=== PATIENT | male | born 1945 | race Caucasian/White ===

== ENCOUNTER 2017-08-05 22:04 | Emergency (ER) | payer MEDICARE ==
[~2017-08-05] VITALS: Ht 165.1 cm; Wt 67.0 kg
[2017-08-06 03:36] VITALS: BP 118/76
== END 2017-08-06 04:40 | disposition home or self-care (01) ==
LOC: EDBD 22:04 → ED 23:05
DX: F10.129 Alcohol abuse with intoxication, unspecified (principal)
CPT/HCPCS: 99283

== ENCOUNTER → 2018-01-03 | Outpatient (CLI) | payer MEDICARE, MEDICAID | END | disposition home or self-care (01) | LOC: CFH 08:48 | PROVIDERS: ATTEND Physician Assistant | DX: K74.60 Unspecified cirrhosis of liver (principal); I85.00 Esophageal varices without bleeding; B18.2 Chronic viral hepatitis C; F10.10 Alcohol abuse, uncomplicated; Z91.19 Patient's noncompliance with other medical treatment and regimen; Z86.010 Personal history of colon polyps | CPT/HCPCS: 76705 ==

== ENCOUNTER 2018-02-11 01:25 | Inpatient (IN) | payer MEDICARE, MEDICAID ==
[~2018-02-11] VITALS: Ht 167.6 cm; Wt 68.8 kg
[2018-02-11 02:25] LABS: MEAN CORPUSCULAR HEMOGLOBIN 36.9 pg (27.5-34.5); MEAN CORPUSCULAR HGB CONC 34.8 g/dL (33.2-36.2); MEAN PLATELET VOLUME 8.2 fL (7.4-10.4); PLATELET COUNT 117 x10^3/uL (130-400); RED BLOOD COUNT 2.56 x10^6/uL (4.38-5.82); RED CELL DISTRIBUTION WIDTH 18.5 % (9.4-14.8)
[2018-02-11] MEDS ORDERED: SODIUM CHLORIDE FLUSH 10ML SYR IVF ONE (02:30)
[2018-02-11 02:34] LABS: ALANINE AMINOTRANSFERASE 103 U/L (12-78); ANION GAP 14 mmol/L (5-15); CALCIUM 7.6 mg/dL (8.5-10.1); CHLORIDE 72 mmol/L (98-107); CREATININE 0.49 mg/dL (0.7-1.3)
[2018-02-11 02:38] LABS: ALKALINE PHOSPHATASE 109 U/L (45-117); BILIRUBIN,TOTAL 2.5 mg/dL (0.2-1.0); TOTAL PROTEIN 6.9 g/dL (6.4-8.2)
[2018-02-11 02:59] LABS: MD YES
[2018-02-11 03:03] LABS: ANISOCYTOSIS 1+; LYMPH#(MANUAL) 1.43 x10^3/uL (1-3.4); LYMPHS% (MANUAL) 10 % (22-44); METAMYELOCYTES# (MANUAL) 0.14 x10^3/uL (0-0); METAMYELOCYTES% (MANUAL) 1 % (0-1); MONOS#(MANUAL) 2.29 x10^3/uL (0.3-2.7); MONOS% (MANUAL) 16 % (2-9); MYELOCYTES# (MANUAL) 0.29 x10^3/uL (0-0); MYELOCYTES% (MANUAL) 2 % (0-0); SEG#(MANUAL) 10.15 x10^3/uL (1.8-6.8); SEGS% (MANUAL) 71 % (42-75)
[2018-02-11 03:04] LABS: <PLATELET ESTIMATE> DECREASED; LARGE PLATELETS 1+; POLYCHROMASIA 1+
[2018-02-11 03:05] LABS: TOXIC GRAN 1+
[2018-02-11 03:08] LABS: BASOPHILLIC STIPPLING 1+
[2018-02-11] MEDS ORDERED: SODIUM CHLORIDE 0.9% 1,000 ML IV ONE (03:13)
[2018-02-11] MEDS ORDERED: OMNIPAQUE 350 MG/ML, 100ML BOTTLE ONE (03:20)
[2018-02-11] MEDS ORDERED: SODIUM CHLORIDE 0.9% 1,000ML IVBOLUS ONE (03:30)
[2018-02-11 04:52] LABS: MICROSCOPIC INDICATED
[2018-02-11 05:00] LABS: CULTURE INDICATED? YES
[2018-02-11] MEDS ORDERED: CEFTRIAXONE PMX 1GM/50ML 50 ML IV ONE (05:30)
[2018-02-11] MEDS ORDERED: CEFTRIAXONE PMX 1GM/50ML 50 ML ONE (05:43)
[2018-02-11] MEDS ORDERED: SODIUM CHLORIDE 0.9% 1,000 ML IV SCH (06:03)
[2018-02-11] MEDS ORDERED: LABETALOL 5MG/ML, 20ML IVPush PRN (06:30)
[2018-02-11] MEDS ORDERED: ONDANSETRON 2MG/ML, 2ML IVPush PRN (06:30)
[2018-02-11] MEDS ORDERED: LORazepam 0.5MG TABLET PO PRN (06:30)
[2018-02-11] MEDS ORDERED: LORazepam 2 MG/ML, 1ML IV PRN ×5 (06:30)
[2018-02-11] MEDS ORDERED: GABAPENTIN 300 MG CAPSULE PO PRN (06:30)
[2018-02-11] MEDS ORDERED: DOCUSATE 100 MG CAPSULE PO PRN (06:30)
[2018-02-11] MEDS ORDERED: PROMETHAZINE 25 MG/ML, 1ML IM PRN (06:30)
[2018-02-11] MEDS ORDERED: ONDANSETRON ODT 4 MG PO PRN (06:30)
[2018-02-11] MEDS ORDERED: hydrALAzine 20 MG/ML, 1ML IVPush PRN (06:30)
[2018-02-11] MEDS ORDERED: POLYETHYLENE GLYCOL 17 GM PACKET PO PRN (06:30)
[2018-02-11] MEDS ORDERED: LORazepam 1MG TABLET PO PRN ×4 (06:30)
[2018-02-11] MEDS ORDERED: BISACODYL 10 MG SUPP PR PRN (06:30)
[2018-02-11 06:38] LABS: INTERNATIONAL NORMALIZED RATIO 1.09 (0.93-1.1); PROTHROMBIN TIME 11.5 Seconds (9.6-11.5)
[2018-02-11 06:40] LABS: FREE T4 (FREE THYROXINE) 1.39 ng/dL (0.76-1.46); THYROID STIMULATING HORMONE 2.29 mIU/L (0.358-3.740)
[2018-02-11] MEDS ORDERED: ALBUTEROL/IPRATROPIUM 2.5MG/0.5MG, 3 ML ONE (06:53)
[2018-02-11] MEDS: ALBUTEROL/IPRATROPIUM 2.5MG/0.5MG, 3 ML NPPB SCH ×4 (07:08→18:59)
[2018-02-11] MEDS ORDERED: LORazepam 2 MG/ML, 1ML IVPush PRN (08:00)
[2018-02-11 08:55] LABS: ANION GAP 10 mmol/L (5-15); CALCIUM 7.5 mg/dL (8.5-10.1); CHLORIDE 80 mmol/L (98-107); CREATININE 0.42 mg/dL (0.7-1.3)
[2018-02-11] MEDS ORDERED: THIAMINE 100MG TABLET PO SCH (09:00)
[2018-02-11] MEDS ORDERED: MULTIVITAMIN 1 TABLET PO SCH (09:00)
[2018-02-11] MEDS ORDERED: FOLIC ACID 1 MG TABLET PO SCH (09:00)
[2018-02-11 09:34] LABS: FOLATE LEVEL 18.8 ng/mL (3.1-17.5)
[2018-02-11] MEDS: LACTULOSE 20 GM/30 ML UDC PO SCH ×2 (10:16→21:12)
[2018-02-11] MEDS: POTASSIUM CHLORIDE 20 MEQ, MAGNESIUM SULFATE 1 GM, THIAMINE 200 MG, FOLIC ACID 1 MG, MV... IV SCH ×2 (10:16→20:04)
[2018-02-11] MEDS: CHLORDIAZEPOXIDE 25 MG CAPSULE PO SCH ×3 (10:16→21:12)
[2018-02-11 12:08] LABS: ANION GAP 9 mmol/L (5-15); CALCIUM 7.8 mg/dL (8.5-10.1); CHLORIDE 84 mmol/L (98-107)
[2018-02-11] MEDS ORDERED: SODIUM CHLORIDE 0.45% 1,000 ML IV SCH (13:00)
[2018-02-11 16:24] LABS: ANION GAP 6 mmol/L (5-15); CALCIUM 7.5 mg/dL (8.5-10.1); CHLORIDE 87 mmol/L (98-107); CREATININE 0.59 mg/dL (0.7-1.3)
[2018-02-11 19:11] LABS: CLOSTRIDIUM DIFFICILE ANTIGEN NEGATIVE; CLOSTRIDIUM DIFFICILE TOXIN NEGATIVE (Negative)
[2018-02-11 21:32] LABS: ANION GAP 10 mmol/L (5-15); CALCIUM 7.5 mg/dL (8.5-10.1); CHLORIDE 90 mmol/L (98-107); CREATININE 0.44 mg/dL (0.7-1.3)
[2018-02-11] MEDS ORDERED: D5%-0.45% NACL 1,000 ML IV SCH (22:00)
[2018-02-12 00:59] LABS: ANION GAP 9 mmol/L (5-15); CALCIUM 7.4 mg/dL (8.5-10.1); CHLORIDE 92 mmol/L (98-107)
[2018-02-12] MEDS ORDERED: ACETAMINOPHEN 650 MG SUPP PR PRN ×2 (01:30)
[2018-02-12] MEDS ORDERED: ACETAMINOPHEN 500 MG TABLET PO PRN (01:30)
[2018-02-12] MEDS: CEFTRIAXONE PMX 1GM/50ML 50 ML IV SCH (03:06)
[2018-02-12 04:08] LABS: MEAN CORPUSCULAR HEMOGLOBIN 36.6 pg (27.5-34.5); MEAN CORPUSCULAR HGB CONC 34.3 g/dL (33.2-36.2); MEAN CORPUSCULAR VOLUME 106.7 fL (81-97); MEAN PLATELET VOLUME 8.2 fL (7.4-10.4); PLATELET COUNT 112 x10^3/uL (130-400); RED CELL DISTRIBUTION WIDTH 19.2 % (9.4-14.8)
[2018-02-12] MEDS: SODIUM CHLORIDE 0.9% 1,000 ML IV SCH (04:11)
[2018-02-12 04:15] LABS: ALANINE AMINOTRANSFERASE 75 U/L (12-78); ALBUMIN 2.3 g/dL (3.4-5.0); ANION GAP 11 mmol/L (5-15); CALCIUM 7.5 mg/dL (8.5-10.1); CHLORIDE 93 mmol/L (98-107); CREATININE 0.54 mg/dL (0.7-1.3); MD YES
[2018-02-12 04:18] LABS: ALKALINE PHOSPHATASE 85 U/L (45-117); BILIRUBIN,TOTAL 1.5 mg/dL (0.2-1.0); CHOL/HDL RATIO 2.1; CHOLESTEROL, TOTAL 90 mg/dL (140-239); HDL CHOL % 47 % (26-37); HDL CHOLESTEROL (DIRECT) 42 mg/dL (40-60); LDL CHOLESTEROL,CALCULATED 36 mg/dL (54-169); LDL/HDL RATIO 0.9 (0.5-3.0); TOTAL PROTEIN 5.5 g/dL (6.4-8.2); TRIGLYCERIDES 59 mg/dL (50-200); VLDL CHOLESTEROL 12 mg/dL (0-25)
[2018-02-12 04:21] LABS: ANISOCYTOSIS 1+; EOS#(MANUAL) 0.11 x10^3/uL (0.0-0.4); EOS% (MANUAL) 1 % (1-7); LYMPH#(MANUAL) 1.09 x10^3/uL (1-3.4); LYMPHS% (MANUAL) 10 % (22-44); METAMYELOCYTES# (MANUAL) 0.11 x10^3/uL (0-0); METAMYELOCYTES% (MANUAL) 1 % (0-1); MONOS#(MANUAL) 1.64 x10^3/uL (0.3-2.7); MONOS% (MANUAL) 15 % (2-9); MYELOCYTES# (MANUAL) 0.11 x10^3/uL (0-0); MYELOCYTES% (MANUAL) 1 % (0-0); POLYCHROMASIA 1+; SEG#(MANUAL) 7.85 x10^3/uL (1.8-6.8); SEGS% (MANUAL) 72 % (42-75)
[2018-02-12 04:22] LABS: <PLATELET ESTIMATE> DECREASED; <PLT MORPHOLOGY> NORMAL PLT MORPH; PMNS WITH VACUOLES 1+; TOXIC GRAN 1+
[2018-02-12 04:30] VITALS: BP 96/39
[2018-02-12 05:08] LABS: RAPID INFLUENZA A Negative (Negative); RAPID INFLUENZA B Negative (Negative)
[2018-02-12] MEDS ORDERED: SODIUM CHLORIDE 0.9% 1,000 ML IV SCH ×3 (06:03)
[2018-02-12] MEDS ORDERED: POTASSIUM CHLORIDE 20 MEQ TAB.ER.PRT PO ONE (07:30)
[2018-02-12] MEDS: ALBUTEROL/IPRATROPIUM 2.5MG/0.5MG, 3 ML NPPB SCH ×4 (07:30→20:00)
[2018-02-12 09:00] LABS: ANION GAP 6 mmol/L (5-15); CALCIUM 7.7 mg/dL (8.5-10.1); CHLORIDE 97 mmol/L (98-107); CREATININE 0.44 mg/dL (0.7-1.3)
[2018-02-12] MEDS: CHLORDIAZEPOXIDE 25 MG CAPSULE PO SCH ×3 (09:20→20:30)
[2018-02-12] MEDS: LACTULOSE 20 GM/30 ML UDC PO SCH (09:21)
[2018-02-12] MEDS: DOXYCYCLINE 100 MG in DEXTROSE 5% 250 ML IV SCH ×2 (09:21→20:30)
[2018-02-12] MEDS ORDERED: SODIUM CHLORIDE 0.45% 1,000 ML IV SCH (19:00)
[2018-02-12] MEDS: POTASSIUM CHLORIDE 20 MEQ, MAGNESIUM SULFATE 1 GM, THIAMINE 200 MG, FOLIC ACID 1 MG, MV... IV SCH (20:31)
[2018-02-13] MEDS: SODIUM CHLORIDE 0.9% 1,000 ML IV SCH (01:21)
[2018-02-13] MEDS: CEFTRIAXONE PMX 1GM/50ML 50 ML IV SCH (03:34)
[2018-02-13 04:00] VITALS: BP 106/61
[2018-02-13 04:33] LABS: ALANINE AMINOTRANSFERASE 73 U/L (12-78); ALBUMIN 2.3 g/dL (3.4-5.0); ANION GAP 7 mmol/L (5-15); CALCIUM 7.3 mg/dL (8.5-10.1); CHLORIDE 101 mmol/L (98-107); CREATININE 0.44 mg/dL (0.7-1.3)
[2018-02-13 04:35] LABS: ALKALINE PHOSPHATASE 104 U/L (45-117); BILIRUBIN,TOTAL 1.1 mg/dL (0.2-1.0); TOTAL PROTEIN 5.6 g/dL (6.4-8.2)
[2018-02-13 05:42] LABS: MEAN CORPUSCULAR HEMOGLOBIN 36.6 pg (27.5-34.5); MEAN CORPUSCULAR HGB CONC 33.3 g/dL (33.2-36.2); MEAN PLATELET VOLUME 7.7 fL (7.4-10.4); PLATELET COUNT 136 x10^3/uL (130-400); RED BLOOD COUNT 2.27 x10^6/uL (4.38-5.82); RED CELL DISTRIBUTION WIDTH 19.5 % (9.4-14.8)
[2018-02-13 05:43] LABS: MD YES
[2018-02-13 05:44] LABS: ANISOCYTOSIS 1+; EOS#(MANUAL) 0.21 x10^3/uL (0.0-0.4); EOS% (MANUAL) 2 % (1-7); LYMPH#(MANUAL) 1.34 x10^3/uL (1-3.4); LYMPHS% (MANUAL) 13 % (22-44); METAMYELOCYTES% (MANUAL) 1 % (0-1); MONOS#(MANUAL) 1.13 x10^3/uL (0.3-2.7); MONOS% (MANUAL) 11 % (2-9); SEG#(MANUAL) 7.52 x10^3/uL (1.8-6.8); SEGS% (MANUAL) 73 % (42-75)
[2018-02-13 05:45] LABS: <PLATELET ESTIMATE> ADEQUATE; <PLT MORPHOLOGY> NORMAL PLT MORPH; PMNS WITH VACUOLES 1+; POLYCHROMASIA 1+; TOXIC GRAN 1+
[2018-02-13 05:48] LABS: MICROCYTOSIS 1+
[2018-02-13] MEDS ORDERED: MAGNESIUM SULFATE PMX 2GM/50ML 50 ML IV ONE (07:30)
[2018-02-13] MEDS: ALBUTEROL/IPRATROPIUM 2.5MG/0.5MG, 3 ML NPPB SCH ×4 (07:30→19:14)
[2018-02-13] MEDS: DOXYCYCLINE 100 MG in DEXTROSE 5% 250 ML IV SCH ×2 (08:18→21:34)
[2018-02-13] MEDS: CHLORDIAZEPOXIDE 25 MG CAPSULE PO SCH ×3 (08:40→21:37)
[2018-02-13] MEDS ORDERED: PANCRELIPASE 24,000 CAPSULE.DR PO SCH (10:30)
[2018-02-13 14:25] VITALS: BP 116/67
[2018-02-13 19:01] VITALS: BP 110/62
[2018-02-13] MEDS: POTASSIUM CHLORIDE 20 MEQ, MAGNESIUM SULFATE 1 GM, THIAMINE 200 MG, FOLIC ACID 1 MG, MV... IV SCH (23:03)
[2018-02-14] MEDS: CEFTRIAXONE PMX 1GM/50ML 50 ML IV SCH (01:58)
[2018-02-14 02:55] VITALS: BP 116/68
[2018-02-14 06:50] VITALS: BP 119/62
[2018-02-14] MEDS: ALBUTEROL/IPRATROPIUM 2.5MG/0.5MG, 3 ML NPPB SCH ×3 (07:58→14:09)
[2018-02-14] MEDS: DOXYCYCLINE 100 MG in DEXTROSE 5% 250 ML IV SCH ×2 (10:07→21:46)
[2018-02-14] MEDS: CHLORDIAZEPOXIDE 25 MG CAPSULE PO SCH ×2 (10:07→20:56)
[2018-02-14] MEDS ORDERED: MAGNESIUM SULFATE PMX 2GM/50ML 50 ML IV ONE (12:00)
[2018-02-14 13:17] VITALS: BP 96/59
[2018-02-14] MEDS ORDERED: ALBUTEROL/IPRATROPIUM 2.5MG/0.5MG, 3 ML NPPB PRN (14:15)
[2018-02-14 18:56] VITALS: BP 107/67
[2018-02-14] MEDS: POTASSIUM CHLORIDE 20 MEQ, MAGNESIUM SULFATE 1 GM, THIAMINE 200 MG, FOLIC ACID 1 MG, MV... IV SCH (23:09)
[2018-02-15 01:53] VITALS: BP 108/66
[2018-02-15] MEDS: CEFTRIAXONE PMX 1GM/50ML 50 ML IV SCH (02:03)
[2018-02-15 05:55] LABS: MEAN CORPUSCULAR HEMOGLOBIN 36.6 pg (27.5-34.5); MEAN CORPUSCULAR HGB CONC 33.2 g/dL (33.2-36.2); MEAN CORPUSCULAR VOLUME 110.3 fL (81-97); MEAN PLATELET VOLUME 7.5 fL (7.4-10.4); PLATELET COUNT 180 x10^3/uL (130-400); RED BLOOD COUNT 2.36 x10^6/uL (4.38-5.82); RED CELL DISTRIBUTION WIDTH 19.2 % (9.4-14.8)
[2018-02-15 05:56] LABS: ALBUMIN 2.2 g/dL (3.4-5.0); ANION GAP 8 mmol/L (5-15); CALCIUM 7.8 mg/dL (8.5-10.1); CHLORIDE 97 mmol/L (98-107)
[2018-02-15 05:59] LABS: ALANINE AMINOTRANSFERASE 55 U/L (12-78); ALKALINE PHOSPHATASE 92 U/L (45-117); BILIRUBIN,TOTAL 0.8 mg/dL (0.2-1.0); CREATININE 0.49 mg/dL (0.7-1.3); TOTAL PROTEIN 5.8 g/dL (6.4-8.2)
[2018-02-15 06:23] LABS: MD YES
[2018-02-15 06:24] LABS: EOS#(MANUAL) 0.46 x10^3/uL (0.0-0.4); EOS% (MANUAL) 5 % (1-7); LYMPH#(MANUAL) 1.66 x10^3/uL (1-3.4); LYMPHS% (MANUAL) 18 % (22-44); MONOS% (MANUAL) 13 % (2-9); NRBC % (MANUAL) 1 % (0-1); SEG#(MANUAL) 5.89 x10^3/uL (1.8-6.8); SEGS% (MANUAL) 64 % (42-75)
[2018-02-15 06:25] LABS: ANISOCYTOSIS 1+; POLYCHROMASIA 1+
[2018-02-15 06:26] LABS: <PLATELET ESTIMATE> ADEQUATE; <PLT MORPHOLOGY> NORMAL PLT MORPH; TOXIC GRAN 1+
[2018-02-15 06:28] LABS: PMNS WITH VACUOLES 1+
[2018-02-15] MEDS: CHLORDIAZEPOXIDE 25 MG CAPSULE PO SCH (09:00)
[2018-02-15] MEDS: DOXYCYCLINE 100 MG in DEXTROSE 5% 250 ML IV SCH (09:24)
[2018-02-15 09:26] VITALS: BP 112/67
[2018-02-15 13:45] VITALS: BP 131/73
[2018-02-15] MEDS ORDERED: LORazepam 2 MG/ML, 1ML IVPush PRN (15:30)
[2018-02-15] MEDS: ACETAMINOPHEN 325 MG TABLET PO SCH ×2 (16:01→20:35)
[2018-02-15 18:50] VITALS: BP 101/54
[2018-02-15] MEDS: THIAMINE 100MG TABLET PO SCH (20:35)
[2018-02-16 00:06] VITALS: BP 96/60
[2018-02-16] MEDS: CEFTRIAXONE PMX 1GM/50ML 50 ML IV SCH (02:07)
[2018-02-16 05:05] LABS: MEAN CORPUSCULAR HEMOGLOBIN 37.3 pg (27.5-34.5); MEAN CORPUSCULAR HGB CONC 33.9 g/dL (33.2-36.2); MEAN PLATELET VOLUME 7.3 fL (7.4-10.4); PLATELET COUNT 169 x10^3/uL (130-400); RED BLOOD COUNT 2.42 x10^6/uL (4.38-5.82); RED CELL DISTRIBUTION WIDTH 18.9 % (9.4-14.8)
[2018-02-16 05:06] LABS: ALBUMIN 2.2 g/dL (3.4-5.0); CALCIUM 8.2 mg/dL (8.5-10.1); CHLORIDE 98 mmol/L (98-107)
[2018-02-16 05:12] LABS: ALANINE AMINOTRANSFERASE 53 U/L (12-78); ALKALINE PHOSPHATASE 121 U/L (45-117); ANION GAP 6 mmol/L (5-15); BILIRUBIN,TOTAL 0.7 mg/dL (0.2-1.0); CREATININE 0.59 mg/dL (0.7-1.3); TOTAL PROTEIN 5.8 g/dL (6.4-8.2)
[2018-02-16 05:46] LABS: MD YES
[2018-02-16 05:48] LABS: BAND#(MANUAL) 0.12 x10^3/uL; BANDS%(MANUAL) 1 % (0-7); EOS#(MANUAL) 0.81 x10^3/uL (0.0-0.4); EOS% (MANUAL) 7 % (1-7); LYMPH#(MANUAL) 1.04 x10^3/uL (1-3.4); LYMPHS% (MANUAL) 9 % (22-44); METAMYELOCYTES# (MANUAL) 0.12 x10^3/uL (0-0); METAMYELOCYTES% (MANUAL) 1 % (0-1); MONOS#(MANUAL) 2.09 x10^3/uL (0.3-2.7); MONOS% (MANUAL) 18 % (2-9); SEG#(MANUAL) 7.42 x10^3/uL (1.8-6.8); SEGS% (MANUAL) 64 % (42-75)
[2018-02-16 05:49] LABS: ANISOCYTOSIS 1+; POLYCHROMASIA 1+
[2018-02-16 05:50] LABS: BASOPHILLIC STIPPLING 1+; TOXIC GRAN 1+
[2018-02-16 05:51] LABS: <PLATELET ESTIMATE> ADEQUATE; <PLT MORPHOLOGY> NORMAL PLT MORPH
[2018-02-16 06:55] VITALS: BP 105/60
[2018-02-16] MEDS: THIAMINE 100MG TABLET PO SCH (08:59)
[2018-02-16] MEDS: ACETAMINOPHEN 325 MG TABLET PO SCH ×2 (09:00→15:51)
[2018-02-16 12:00] VITALS: BP 87/55
[2018-02-16] MEDS ORDERED: THIA100T67 PO (13:17)
[2018-02-16] MEDS ORDERED: ACET325T14 PO (13:17)
[2018-02-16 16:16] VITALS: BP 121/73
== END 2018-02-16 17:01 | DRG 871 ==
LOC: ED 02:04 → EDIP 04:05 → CCU 08:09 → 3NW 02-13 13:42
PROVIDERS: ADMIT Internal Medicine; ATTEND Internal Medicine
DX: A41.9 Sepsis, unspecified organism (principal); J18.9 Pneumonia, unspecified organism; G93.41 Metabolic encephalopathy; E43 Unspecified severe protein-calorie malnutrition; E87.1 Hypo-osmolality and hyponatremia; I42.9 Cardiomyopathy, unspecified; K70.40 Alcoholic hepatic failure without coma; F10.20 Alcohol dependence, uncomplicated; D69.59 Other secondary thrombocytopenia; F17.210 Nicotine dependence, cigarettes, uncomplicated; E86.0 Dehydration; D53.9 Nutritional anemia, unspecified; K70.30 Alcoholic cirrhosis of liver without ascites; N30.90 Cystitis, unspecified without hematuria; S30.1XXA Contusion of abdominal wall, initial encounter; K70.10 Alcoholic hepatitis without ascites; J40 Bronchitis, not specified as acute or chronic; I35.8 Other nonrheumatic aortic valve disorders; Z59.0 Homelessness; Y93.89 Activity, other specified; Y92.89 Other specified places as the place of occurrence of the external cause; Y99.8 Other external cause status; Z68.24 Body mass index [BMI] 24.0-24.9, adult
CPT/HCPCS: 36415; 70450; 71045; 74177; 80048; 80053; 80061; 80307; 81001; 82140; 82533; 82607; 82746; 83036; 83690; 83735; 83880; 84100; 84295; 84439; 84443; 85025; 85610; 87040; 87070; 87081; 87086; 87205; 87324; 87400; 93005; 93306; 94640; 96361; 96374; G0378; J0696; J3411; J3475; J3480; J7060; J7620; Q9967; J7030